=== PATIENT | male | born 1965 | race Caucasian/White ===

== ENCOUNTER 2016-09-10 08:59 | Day surgery (SDC) | payer OTHER ==
--- NOTE | ~2016-09-10 | EGD ---
EGD REPORT [facility] [address] [id number] NAME: ELOISA RODRIGUEZ : [birth year] STATUS : REG [facility]#: [id number] AGE: 51 ADM/REG DATE : 09/10/16 MR#: [id number] REPORT SERV DATE: 09/10/16 DICTATED BY: DATE: REPORT STATUS : Draft TRANSCRIBED BY: [employer] DATE: 09/10/16 [facility] Center Patient Name: Eloisa Rodriguez Date of : 1965 Attending MD: TOBIAS BLANCO MD Procedure Date No Time: 09/10/2016 Procedure: Colonoscopy Indications: Screening for colorectal malignant neoplasm Referring MD: KAZ CAMPUZANO Medicines: as per anesthesia Complications: No immediate complications. Procedure: Pre-Anesthesia Assessment: - ASA Grade Assessment: II - A patient with mild systemic disease. After I obtained informed consent, the scope was passed under direct vision. Throughout the procedure, the patient's blood pressure, pulse, and oxygen saturations were monitored continuously. The PCF [id number] was introduced through the anus and advanced to the cecum, identified by appendiceal orifice and ileocecal valve. The colonoscopy was performed without difficulty. The patient tolerated the procedure well. The quality of the bowel preparation was fair. Findings: The perianal and digital rectal examinations were normal. Internal hemorrhoids were found during endoscopy and were mild. Impression: - Internal hemorrhoids. Recommendation: - Repeat colonoscopy in 10 years for surveillance. Procedure Code(s): --- Professional --- 99899, Colonoscopy, flexible, proximal to splenic flexure; diagnostic, with or without collection of specimen(s) by brushing or washing, with or without colon decompression (separate procedure) Diagnosis Code(s): --- Professional --- K64.8, Other hemorrhoids Z12.11, Encounter for screening for malignant neoplasm of colon CPT copyright 2013 [employer]. All rights reserved. EGD REPORT [facility] [address] [address] NAME: ELOISA RODRIGUEZ : 67 [place] [facility] [place] [id number] AGE: 51 ADM/REG DATE : 09/10/16 MR#: [id number] REPORT SERV DATE: 09/10/16 DICTATED BY: DATE: REPORT STATUS : Draft TRANSCRIBED BY: [email or web address] DATE: 09/10/16 The codes documented in this report are preliminary and upon test conductor review may be revised to meet current compliance requirements. TOBIAS BLANCO MD 09/10/2016 11:30 AM This report has been signed electronically. Number of Addenda: 0 Note Initiated On: 09/10/2016 11:07 AM Scope Withdrawal Time 0 hours 7 minutes 22 seconds [address] [id number]
[~2016-09-10 08:59] MED LIST: CLARIT10 PO; COZAAR100 MG PO; FLONASE NAS
== END 2016-09-10 23:59 | disposition home or self-care (01) ==
LOC: DMU 08:59
PROVIDERS: Internal Medicine Gastroenterology
PROC: 0DJD8ZZ Inspection of Lower Intestinal Tract, Via Natural or Artificial Opening Endoscopic (ICD-10-PCS; principal; 2016-09-10 10:30)
DX: Z12.11 Encounter for screening for malignant neoplasm of colon (principal); K64.8 Other hemorrhoids; I10 Essential (primary) hypertension; Z79.51 Long term (current) use of inhaled steroids; Z79.899 Other long term (current) drug therapy